=== PATIENT | female | born 1985 ===

== ENCOUNTER 2017-04-22 14:58 | Emergency (ER) | payer BC ==
[2017-04-22 15:07] VITALS: BP 155/91
[2017-04-22] MEDS ORDERED: MOTRIN PO ONE (18:26)
--- NOTE | 2017-04-22 18:26 | Emergency Department Report ---
ED Rash HPI - HPI Chief Complaint: Skin Rash Stated Complaint: RASH Time Seen by Provider: 04/22/17 17:58 Duration: 2 Days Location: Chest (right upper chest), Back (right upper back), Lower Extremities (right upper arm) Suspected Cause: Unknown Rash Symptoms: Yes Blistering (right upper arm, right upper back and right upper chest), Yes Myalgias (patient reports painful rash to upper arm, right upper chest and right upper back), No Itching, No Facial Swelling, No Tongue/ Oral Swelling, No Breathing Difficulties, No Choking Sensation, No Wheezing/ Dyspnea, No Peeling, No Fever, No Lightheaded, No Malaise Severity: severe (8/10) Other History: H and he reports that he has red rash to his upper chest on the right side, right upper arm and right back that has been there for 2 days. He said the rash is burning and painful at 8 out of 10. He took [id number] Tylenol but it did not help. He said he had no interaction with anyone with similar rash. Denies any symptoms up to date, when asked, patient said he had burning sensation at sites and then rash came out 2 days later. He denies any immunocompromise state. He has no medical problems. Denies fever or chills. Denies any cough, wheezing, stridor, sore throats or difficulty breathing. ED Review of Systems ROS: Stated complaint: RASH Other details as noted in HPI Comment: All other systems reviewed and negative Constitutional: no symptoms reported Eyes: denies: eye pain ENT: denies: throat pain, congestion Cardiovascular: denies: chest pain, palpitations, dyspnea on exertion, edema, syncope, paroxysmal nocturnal dyspnea Gastrointestinal: denies: nausea, vomiting Musculoskeletal: myalgia (chest wall, right upper arm and right upper back). denies: back pain, joint swelling, arthralgia Skin: rash, other (A and full red rash) Neurological: denies: headache, weakness, numbness, paresthesias, abnormal gait ED Past Medical Hx - Past Medical History Previous Medical History?: No - Surgical History Past Surgical History?: No - Family History Family history: no significant - Social History Smoking Status: Never Smoker Substance Use Type: None - Medications Home Medications: Home Medications Medication Instructions Recorded Confirmed Last Taken Type HYDROcodone/ACETAMINOPHEN [[place] 1 each PO Q8H PRN 4 Days #12 tablet 04/22/17 Unknown Rx 5-325 Tablet] Ibuprofen [Motrin] 600 mg PO Q8H PRN 5 Days #15 tablet 04/22/17 Unknown Rx Lidocaine [Lidoderm] 1 each TP Q12H PRN 3 Days #6 04/22/17 Unknown Rx adh..patch Valacyclovir HCl [Valtrex] 1,000 mg PO TID 7 Days #21 tablet 04/22/17 Unknown Rx Rash Exam - Exam General: Vital signs noted. No distress. Alert and acting appropriately. This is a 31-year-old male well-nourished well-developed in no acute distress HEENT: No Periorbital Edema, No Conjuctival Injection, No Chemosis, No Perioral Edema, No Tongue Edema, No Uvular Edema, No Compromised Airway, No Drooling Lungs: Yes Good Air Exchange (Clear to auscultate bilaterally), No Wheezes, No Ronchi, No Stridor, No Cough, No Labored Respirations, No Retractions, No Use of Accessory Muscles, No Other Abnormal Lung Sounds Heart: Yes Regular (S1 and S2, no murmur), No Murmur Skin: Yes Tenderness (right upper chest, right upper back and right upper arm), Yes Erythema (right upper chest, right upper back and right upper arm), Yes Other (clusters of erythema, vesicular rash to right chest wall, left upper back and right upper arm.), No Urticarial Rash, No Maculopapular Rash, No Morbilliform rash, No Bulla(e), No Excoriations, No Weeping, No Edema, No Encrustations Other: Positive: Abdomen Normal (soft, nontender to palpate positive. Positive bowel sounds in all quadrants), Neurologic Normal, Musculoskeletal Normal (past 5 strength in all extremities, no clubbing cyanosis or edema. +2 pulses in all extremities. No neurovascular compromise) ED Course Vital Signs 04/22/17 15:02 Temperature 98.2 F Pulse Rate 89 Respiratory 18 Rate Blood Pressure 155/91 O2 Sat by Pulse 100 Oximetry - Reevaluation(s) Reevaluation #1: 04/22/17 18:30 Given Motrin 800 mg in the emergency room for pain from shingles rash. ED Medical Decision Making - Medical Decision Making ED course: Standard here report that he has painful rash to his right upper back , right upper chest and right upper arm that has been ongoing for 2 days and it is painful, burning pain and he use Tylenol and did not relieve pain. Upon examination, findings for vesicular erythema area to the right upper chest wall , right upper arm anterior and posterior and sparsely scattered area to right upper back. Areas are tender to palpate. Patient reports that burning in the skin preceded rash breakout. Patient was given Motrin 800 mg in the emergency room to manage pain. Discharged home at this time with a prescription for 5/325 , Motrin and Valtrex. I informed him that he needs to follow up with scrap yard worker in 3-5 days and that he is considered contagious until rash are dried and subsiding. Critical care attestation.: If time is entered above; I have spent that time in minutes in the direct care of this critically ill patient, excluding procedure time. ED Disposition Clinical Impression: Pain of skin Shingles outbreak Qualifiers: Herpes zoster complications: without complications Qualified Code(s): B02.9 - Zoster without complications Disposition: - TO HOME OR SELFCARE Is pt being admited?: No Does the pt Need Aspirin: No Condition: Stable Instructions: Herpes Zoster (ED) Additional Instructions: Take valtrex as prescribed Follow up with with scrap yard worker in 2-3 days Keep affected area clean and dry. This rash is considered contagious so please practice good hand eye chain. Please read discharge instruction on shingles rash. Do not take [place] if you driving or operating heavy machinery as this medication causes drowsiness Prescriptions: HYDROcodone/ACETAMINOPHEN [[place] 5-325 Tablet] 1 each PO Q8H PRN 4 Days #12 tablet PRN Reason: Pain, Moderate (4-6) Ibuprofen [Motrin] 600 mg PO Q8H PRN 5 Days #15 tablet PRN Reason: Pain Lidocaine [Lidoderm] 1 each TP Q12H PRN 3 Days #6 adh..patch PRN Reason: Pain Valacyclovir HCl [Valtrex] 1,000 mg PO TID 7 Days #21 tablet Referrals: PRIMARY CARE, [Primary Care Provider] - 2-3 Days Forms: Work/School Release Form(ED), Accompanied Note
== END 2017-04-22 19:00 | disposition home or self-care (01) ==
LOC: ED 14:58
DX: B02.9 Zoster without complications (principal)
CPT/HCPCS: 99282